=== PATIENT | male | born 1955 | race Caucasian/White ===

== ENCOUNTER 2016-09-14 20:20 | Inpatient (IN) | payer OTHER ==
[~2016-09-14 20:20] MED LIST: ASPI81CH CHEW; ATOR1TAB18 PO; CIAL20TA PO; FENO160T PO; GLUC5TAB3 PO; INSU1INJ5 SQ; LISI40TA PO; NIAS1000 PO; NOVOINJ3 SQ; OMEG1CAP53 PO
[2016-09-14 20:45] VITALS: BP 167/75; PULSE 98; RESP 24; TEMP 99.5; O2SAT 96
[2016-09-14] MEDS ORDERED: LORazepam 2 MG/ML VIAL IV PRN (21:30)
[2016-09-14] MEDS ORDERED: LACTULOSE SYRUP 20 GM/30 ML CUP PO PRN (21:30)
[2016-09-14] MEDS ORDERED: CHLORHEXIDINE GLUCONATE 2 % 1 PACK (2 CLOTHS) TOP PRN (21:30)
[2016-09-14] MEDS ORDERED: GLUCAGON 1 MG/ML VIAL OTHER PRN (21:30)
[2016-09-14] MEDS ORDERED: BISACODYL 10 MG SUPP RECTAL PRN (21:30)
[2016-09-14] MEDS ORDERED: RESP: ALBUTEROL 2.5 MG/IPRATROPIUM 0.5 MG NEB (PRN) INH (21:30)
[2016-09-14] MEDS ORDERED: MISCELLANEOUS NURSING INFORMATION XX SCH (21:30)
[2016-09-14] MEDS ORDERED: ONDANSETRON HCL 4 MG/2 ML VIAL IV PRN (21:30)
[2016-09-14] MEDS ORDERED: SODIUM CHLOR 0.9% 1000 ML INJ 1,000 ML IV ONE ×3 (21:30)
[2016-09-14] MEDS ORDERED: MORPHINE SULFATE 4 MG/ML INJ IV PRN (21:30)
[2016-09-14] MEDS ORDERED: ZOLPIDEM TARTRATE 5 MG TAB PO PRN (21:30)
[2016-09-14] MEDS ORDERED: SODIUM CHLORIDE 0.9% FLUSH 10 ML FLUSH PRN (21:30)
[2016-09-14] MEDS ORDERED: MAGNESIUM HYDROXIDE SUSP 30 ML CUP PO PRN (21:30)
[2016-09-14] MEDS ORDERED: SENNOSIDES 8.6 MG TAB PO PRN (21:30)
[2016-09-14 22:00] VITALS: BP 173/77; PULSE 98; RESP 21; TEMP 99.5; O2SAT 96
[2016-09-14] MEDS: HEPARIN SODIUM - SQ 10,000 UNITS/ML VIAL SQ SCH (22:02)
[2016-09-14] MEDS: SODIUM BICARBONATE 8.4% INJ 150 MEQ in DEXTROSE 5% IN WATE 1000ML INJ 1,000 ML IV SCH ×2 (22:07)
[2016-09-14 22:45] LABS: BLOOD GAS BASE EXCESS -10.4 mmol/L (-2-2); BLOOD GAS CARBOXYHEMOGLOBIN 1.7 % (0-4); BLOOD GAS HCO3 15 mmol/L (22-26); BLOOD GAS O2 HGB SATURATION 93 % (90-100); BLOOD GAS OXYGEN CONTENT 13.9 Vol % (12.0-20.0); BLOOD GAS PCO2 32 mmHg (38-42); BLOOD GAS PO2 82 mmHg (61-120); BLOOD GAS TOTAL HGB 10.6 G/DL (12.0-16.0); TEMP CORR TO 98.6
[2016-09-14 22:46] LABS: CRITICAL VALUE YES; DRAW SITE RT RADIAL; FIO2 21 %; NUMBER OF ARTERIAL PUNCTURES 1; OXYGEN DEVICE ROOM AIR; STAT NO; ULNAR PULSE PRESENT
[2016-09-14 23:00] VITALS: BP 161/70; PULSE 100; RESP 24; TEMP 99.5; O2SAT 100
--- NOTE | 2016-09-14 23:19 | HHI.HP ---
[facility] Service Critical Care Medicine Primary Care Physician Lj Glez MD Admission Diagnosis Diagnosis: Travel History International Travel<30 Days: No Contact w/Intl Traveler <30 Da: No Traveled to Known Affected Are: No History of Present Illness 61-year-old man with 3 day history of intermittent vomiting and diarrhea. He has spent the past weekend 2-3 days ago renovating a rental house with significant physical exertion and extended chlorine bleach exposure, with some concern about chlorine poisoning, but without major breathlessness. He has had some pain along his right arm for the past day, which started after his physical activities, and he also has a new cough with mild whitish sputum production and some shortness of breath. Patient is a type 2 insulin-dependent diabetic, and he takes insulin as well as metformin. He has no known history of kidney disease. Review of Systems Constitutional: DENIES: Diaphoretic episodes, Fatigue, Fever, Weight gain, Weight loss, Chills, Dizziness, Change in appetite, Night Sweats Endocrine: DENIES: Heat/cold intolerance, Polydipsia, Polyuria, Polyphagia Eyes: DENIES: Blurred vision, Diplopia, Eye inflammation, Eye pain, Vision loss , Photosensitivity, Double Vision Ears, nose, mouth, throat: DENIES: Tinnitus, Hearing loss, Vertigo, Nasal discharge, Oral lesions, Throat pain, Hoarseness, Ear Pain, Running Nose, Epistaxis, Sinus Pain, Toothache, Odynophagia Respiratory: DENIES: Apneas, Cough, Snoring, Wheezing, Hemoptysis, Sputum production, Shortness of breath Cardiovascular: DENIES: Chest pain, Palpitations, Syncope, Dyspnea on Exertion , PND, Lower Extremity Edema, Orthopnea, Claudication Gastrointestinal: COMPLAINS OF: Diarrhea, Nausea, Vomiting, DENIES: Abdominal pain, Black stools, Bloody stools, Constipation, Difficulty Swallowing, Anorexia Genitourinary: DENIES: Sexual dysfunction, Urinary frequency, Urinary incontinence, Urgency, Hematuria, Dysuria, Nocturia, Penile Discharge, Testicular Pain, Testicular Swelling Musculoskeletal: COMPLAINS OF: Joint pain, DENIES: Muscle aches, Stiffness, Joint Swelling, Back pain, Neck pain Integumentary: DENIES: Abnormal pigmentation, Nail changes, Pruritus, Rash Hematologic/lymphatic: DENIES: Bruising, Lymphadenopathy Immunologic/allergic: DENIES: Eczema, Urticaria Neurologic: DENIES: Abnormal gait, Headache, Localized weakness, Paresthesias, Seizures, Speech Problems, Tremor, Poor Balance Psychiatric: DENIES: Anxiety, Confusion, Mood changes, Depression, Hallucinations, Agitation, Suicidal Ideation, Homicidal Ideation, Delusions Past Family Social History Allergies: Coded Allergies: No Known Allergies (Unverified , 09/14/16) Past Medical History Hypertension Diabetes mellitus type 2 Reported Medications Reported Meds & Active Scripts Active Reported Novolog Flexpen Inj (Insulin Aspart) 300 Unit/3 Ml Pen 1 Units SQ Niaspan (Niacin ER) 1,000 Mg Tab 1,000 Mg PO BID Lovaza (Khgia-8-Qqqi Ethyl Esters) 1 Gm Cap 4 Gm PO DAILY Lisinopril 40 Mg Tab 40 Mg PO DAILY Levemir Flextouch Pen Inj (Insulin Detemir) 300 unit/3 ML Pen 1 Units SQ Glucovance (Glyburide-Metformin) 5-500 Mg Tab 1 Tab PO BID Fenofibrate 160 Mg Tab 160 Mg PO DAILY Cialis (Tadalafil) 20 Mg Tab 20 Mg PO DAILY PRN Do not exceed 1 dose/day. Atorvastatin (Atorvastatin Calcium) 80 Mg Tab 80 Mg PO HS Aspirin 81 Mg Chew 162 Mg CHEW DAILY Active Ordered Medications Current Medications Medications (Trade) Dose Ordered Sig/Yamel Route PRN Reason Start Time Stop Time Status Last Admin Dose Admin Aspirin (Aspirin Chew) 162 mg DAILY CHEW 09/15/16 09:00 Atorvastatin Calcium (Lipitor) 80 mg HS PO 09/15/16 21:00 Niacin (Slo-Niacin) 1,000 mg BID PO 09/15/16 09:00 Fenofibrate (Tricor) 145 mg DAILY PO 09/15/16 09:00 Sodium Chloride (NS Flush) 2 ml UNSCH PRN .XX FLUSH AFTER USING IV ACCESS 09/14/16 21:30 Sodium Chloride (NS Flush) 2 ml BID .XX 09/15/16 09:00 Acetaminophen (Tylenol) 650 mg Q6H PRN PO PAIN 1-10 AND/OR FEVER >101F 09/14/16 21:30 Morphine Sulfate (Morphine Inj) 2 mg Q2H PRN IV PAIN SCALE 6 TO 10 09/14/16 21:30 Famotidine (Pepcid Inj) 20 mg DAILY IV PUSH 09/15/16 09:00 Lorazepam (Ativan Inj) 2 mg Q4H PRN IV Agitation/Sedation 09/14/16 21:30 Ondansetron HCl (Zofran Inj) 4 mg Q6H PRN IV NAUSEA OR VOMITING 09/14/16 21:30 09/14/16 23:50 Zolpidem Tartrate (Ambien) 5 mg HS PRN PO INSOMNIA 09/14/16 21:30 Heparin Sodium (Porcine) (Heparin Inj) 5,000 units Q8H SQ 09/14/16 21:30 09/14/16 22:02 Miscellaneous Information 1 [id number] XX 09/14/16 21:30 09/14/16 21:30 Chlorhexidine Gluconate (Chlorhexidine 2% Cloth) 3 pack Taper DAILY@04 TOP 09/15/16 04:00 09/11/17 03:59 Chlorhexidine Gluconate (Chlorhexidine 2% Cloth) 3 pack UNSCH PRN TOP HYGIENIC CARE 09/14/16 21:30 Senna/Docusate Sodium (Sharona-Colace) 1 tab BID PO 09/15/16 09:00 Magnesium Hydroxide (Milk Of Lia Liq) 30 ml Q12H PRN PO MILD - MODERATE CONSTIPATION 09/14/16 21:30 Sennosides (Senokot) 17.2 mg Q12H PRN PO MODERATE - SEVERE CONSTIPATION 09/14/16 21:30 Bisacodyl (Dulcolax Supp) 10 mg DAILY PRN RECTAL SEVERE CONSITIPATION 09/14/16 21:30 Lactulose 30 ml 30 ml DAILY PRN PO SEVERE CONSITIPATION 09/14/16 21:30 Sodium Bicarbonate/ Dextrose (Sodium Bicarbonate 8.4% Inj/D5W 1000 ml Inj) 1,150 ml @ 75 mls/hr [id number] IV 09/14/16 21:30 09/14/16 22:07 Dextrose (D50w (Vial) Inj) 50 ml UNSCH PRN IV HYPOGLYCEMIA-SEE COMMENTS 09/14/16 21:30 Glucagon (Glucagon Inj) 1 mg UNSCH PRN OTHER HYPOGLYCEMIA-SEE COMMENTS 09/14/16 21:30 Labetalol HCl (Trandate Inj) 10 mg Q4H PRN IV PUSH SBP>160, DBP>90 09/14/16 23:45 Hydralazine HCl (Apresoline Inj) 20 mg Q4H PRN IV PUSH SBP>160, DBP>90 09/14/16 23:45 09/15/16 00:24 Family History No family history of early coronary artery disease or cancer Social History Alcohol Use: No Tobacco Use: No Substance Use: No Physical Exam Vital Signs Vital Signs Date Time Temp Pulse Resp B/P Pulse Ox O2 Delivery O2 Flow Rate FiO2 09/14/16 20:45 98 09/14/16 20:45 99.5 98 24 167/75 96 09/14/16 20:45 98 Physical Exam GENERAL: Well-nourished, well-developed patient. SKIN: Warm and dry. HEAD: Normocephalic. EYES: No scleral icterus. No injection or drainage. NECK: Supple, trachea midline. No JVD or lymphadenopathy. CARDIOVASCULAR: Regular rate and rhythm without murmurs, gallops, or rubs. RESPIRATORY: Breath sounds equal bilaterally. No accessory muscle use. GASTROINTESTINAL: Abdomen soft, non-tender, nondistended. MUSCULOSKELETAL: No cyanosis, or edema. BACK: Nontender without obvious deformity. No CVA tenderness. EXTREMITIES: No clubbing cyanosis or edema Laboratory Laboratory Tests Test 09/14/16 22:31 Blood Gas Puncture Site RT RADIAL Blood Gas Patient Temperature 98.6 Blood Gas HCO3 15 Blood Gas Base Excess -10.4 Blood Gas Oxygen Saturation 93 Arterial Blood pH 7.29 Arterial Blood Partial 32 Pressure CO2 Arterial Blood Partial 82 Pressure O2 Arterial Blood Oxygen Content 13.9 Arterial Blood 1.7 Carboxyhemoglobin Arterial Blood Methemoglobin 1.0 Blood Gas Hemoglobin 10.6 Oxygen Delivery Device ROOM AIR Blood Gas Inspired Oxygen 21 Assessment and Plan Assessment and Plan Acute kidney injury - Due to volume loss - Aggressive IV fluid rehydration - Sodium bicarbonate drip - Nephrology consult - Monitor I's and O's and electrolytes trend Rhabdomyolysis - Due to dehydration - Sodium bicarbonate to alkalinize urine - Monitor series of CPKs Hypertension - Hold LORETTA inhibitor and diuretics - Norvasc - Hydralazine when necessary Diabetes - Hold metformin due to acute kidney injury - Insulin sliding scale - Long acting insulin per home dose DVT GI prophylaxis - Subcutaneous heparin Pepcid - Teds and SCDs Critical Care: The total critical care time was 35 minutes. Time to perform other separately billable procedures was not included in the critical care time. Vinnie Smart MD Sep 14, 2016 23:19
[2016-09-14] MEDS ORDERED: LABETALOL HCL 100 MG/20 ML VIAL IV PUSH PRN (23:45)
[2016-09-15] VITALS (16 sets, daily range): BP systolic 112–170; BP diastolic 53–83; PULSE 80–108; RESP 17–31; TEMP 98–99; O2SAT 93–98
[2016-09-15 00:24] LABS: ANION GAP 14 MEQ/L (5-15)
[2016-09-15] MEDS: hydrALAZINE HCL 20 MG/ML VIAL IV PUSH PRN ×2 (00:24→10:25)
[2016-09-15 00:29] LABS: ALKALINE PHOSPHATASE 27 U/L (45-117); ALT (GPT) 41 U/L (12-78); AST (GOT) 28 U/L (15-37); BICARBONATE 14.7 MEQ/L (21.0-32.0); BLOOD UREA NITROGEN 94 MG/DL (7-18); CHLORIDE 112 MEQ/L (98-107); CREATINE KINASE 836 U/L (39-308); GLOMERULAR FILTRATION RATE 5 ML/MIN (>89); MAGNESIUM 1.8 MG/DL (1.5-2.5); SODIUM (NA) 141 MEQ/L (136-145); TOTAL BILIRUBIN ADULT 0.4 MG/DL (0.2-1.0)
[2016-09-15 00:31] LABS: POTASSIUM 6.7 MEQ/L (3.5-5.1)
[2016-09-15] MEDS: ACETAMINOPHEN 325 MG TAB PO PRN ×2 (00:33→10:24)
[2016-09-15] MEDS ORDERED: INSULIN HUMAN REGULAR 1,000 UNITS/10 ML VIAL IV PUSH ONE ×2 (00:45→18:45)
[2016-09-15] MEDS ORDERED: SODIUM CHLOR 0.9% 1000 ML INJ 1,000 ML IV ONE ×3 (00:45)
[2016-09-15] MEDS ORDERED: CALCIUM GLUCONATE INJ 2 GM in SODIUM CHLORIDE 0.9% INJ 100 ML IV ONE (00:45)
[2016-09-15] MEDS ORDERED: SODIUM BICARBONATE 8.4% INJ 50 MEQ/50 ML SYR IV PUSH ONE ×2 (00:45→17:45)
[2016-09-15] MEDS ORDERED: DEXTROSE 50% IN WATER 50 ML VIAL(D50) IV PUSH ONE (00:45)
[2016-09-15] MEDS ORDERED: SODIUM POLYSTYRENE SULFONATE SUSP 15 GM/60 ML CUP PO ONE ×3 (00:45→17:45)
[2016-09-15 00:51] LABS: CKMB 4.7 NG/ML (0.5-3.6)
[2016-09-15] MEDS: CHLORHEXIDINE GLUCONATE 2 % 1 PACK (2 CLOTHS) TOP SCH (03:04)
[2016-09-15 04:03] LABS: AUTOMATED NEUTROPHIL # 5.1 TH/MM3 (1.8-7.7); BASOPHIL % 0.3 % (0.0-2.0); EOSINOPHIL % 0.1 % (0.0-4.0); HEMATOCRIT 29.7 % (39.0-51.0); HEMO FLAGS DIFF FINAL; LYMPH % 15.6 % (9.0-44.0); MEAN CELL VOLUME 91.6 FL (80.0-100.0); MEAN CORPUSCULAR HEMOGLOBIN 30.6 PG (27.0-34.0); MEAN CORPUSCULAR HGB CONC 33.5 % (32.0-36.0); MONO % 7.9 % (0.0-8.0); NEUT % 76.1 % (16.0-70.0); PLATELET COUNT 131 TH/MM3 (150-450); RED BLOOD COUNT 3.24 MIL/MM3 (4.50-5.90); RED CELL DISTRIBUTION WIDTH 15.6 % (11.6-17.2); WHITE BLOOD COUNT 6.7 TH/MM3 (4.0-11.0)
[2016-09-15 04:24] LABS: ALKALINE PHOSPHATASE 24 U/L (45-117); ALT (GPT) 37 U/L (12-78); ANION GAP 12 MEQ/L (5-15); AST (GOT) 21 U/L (15-37); BICARBONATE 15.8 MEQ/L (21.0-32.0); BLOOD UREA NITROGEN 86 MG/DL (7-18); CHLORIDE 116 MEQ/L (98-107); CREATINE KINASE 715 U/L (39-308); GLOMERULAR FILTRATION RATE 6 ML/MIN (>89); MAGNESIUM 1.7 MG/DL (1.5-2.5); POTASSIUM 5.4 MEQ/L (3.5-5.1); SODIUM (NA) 144 MEQ/L (136-145); TOTAL BILIRUBIN ADULT 0.3 MG/DL (0.2-1.0)
[2016-09-15 04:43] LABS: CKMB 4.3 NG/ML (0.5-3.6)
[2016-09-15] MEDS: HEPARIN SODIUM - SQ 10,000 UNITS/ML VIAL SQ SCH ×3 (05:17→22:01)
[2016-09-15] MEDS: SODIUM CHLORIDE 0.9% FLUSH 10 ML FLUSH SCH ×2 (09:00→21:00)
[2016-09-15] MEDS: DOCUSATE SODIUM 50 MG/SENNA 8.6 MG TAB PO SCH ×2 (09:00→21:00)
[2016-09-15] MEDS ORDERED: OMEGA ACID ETHYL ESTERS PO SCH (09:00)
[2016-09-15] MEDS: INSULIN ASPART SUPPLEMENTAL SCALE SQ SCH ×4 (09:30→22:04)
[2016-09-15] MEDS: FENOFIBRATE 145 MG TAB PO SCH (09:32)
[2016-09-15] MEDS: FAMOTIDINE 20 MG/2 ML VIAL IV PUSH SCH (09:32)
[2016-09-15] MEDS: NIACIN 500 MG EXTENDED RELEASE TAB PO SCH ×2 (09:32→22:01)
[2016-09-15] MEDS: ASPIRIN 81 MG CHEW TAB CHEW SCH (09:33)
[2016-09-15] MEDS: SODIUM BICARBONATE 8.4% INJ 150 MEQ in DEXTROSE 5% IN WATE 1000ML INJ 1,000 ML IV SCH ×4 (10:35→17:24)
--- NOTE | 2016-09-15 13:35 | PD.TRANSFR ---
Transfer Summary Admission Date Sep 14, 2016 at 20:30 Admitting Diagnosis Diagnoses: (1) Acute renal failure Diagnosis: Principal (2) Rhabdomyolysis Diagnosis: Principal (3) Dehydration Diagnosis: Principal (4) Hyperkalemia Diagnosis: Principal (5) Insulin dependent diabetes mellitus Diagnosis: Secondary Transfer Summary/Subjective 61-year-old man with 3 day history of intermittent vomiting and diarrhea. He has spent the past weekend 2-3 days ago renovating a rental house with significant physical exertion and extended chlorine bleach exposure, with some concern about chlorine poisoning, but without major breathlessness. He has had some pain along his right arm for the past day, which started after his physical activities, and he also has a new cough with mild whitish sputum production and some shortness of breath. Patient is a type 2 insulin-dependent diabetic, and he takes insulin as well as metformin. He has no known history of kidney disease. SUBJ 09/15: Clinically improving. Urine output more than 2.2 L in the last 8 hours. Creatinine improved from 10.5-9.5 potassium was 6.7 yesterday today morning 5.4. Objective Vital Signs Date Time Temp Pulse Resp B/P Pulse Ox O2 Delivery O2 Flow Rate FiO2 09/15/16 12:00 98.3 82 19 156/67 98 09/15/16 07:00 Room Air Intake and Output 09/14/16 09/14/16 09/15/16 08:00 16:00 00:00 Intake Total 1657 ml Output Total 450 ml Balance 1207 ml Result Diagram: 09/15/16 0339 09/15/16 0339 Other Results Laboratory Tests Test 09/14/16 22:31 Blood Gas Puncture Site RT RADIAL Blood Gas Patient Temperature 98.6 Blood Gas HCO3 15 mmol/L (22-26) Blood Gas Base Excess -10.4 mmol/L (-2-2) Blood Gas Oxygen Saturation 93 % (90-100) Arterial Blood pH 7.29 (7.380-7.420) Arterial Blood Partial 32 mmHg (38-42) Pressure CO2 Arterial Blood Partial 82 mmHg Pressure O2 (61-120) Arterial Blood Oxygen Content 13.9 Vol % (12.0-20.0) Arterial Blood 1.7 % (0-4) Carboxyhemoglobin Arterial Blood Methemoglobin 1.0 % (0-2) Blood Gas Hemoglobin 10.6 G/DL (12.0-16.0) Oxygen Delivery Device ROOM AIR Blood Gas Inspired Oxygen 21 % Objective Remarks GENERAL: Well-nourished, well-developed patient. SKIN: Warm and dry. HEAD: Normocephalic. EYES: No scleral icterus. No injection or drainage. NECK: Supple, trachea midline. No JVD or lymphadenopathy. CARDIOVASCULAR: Regular rate and rhythm without murmurs, gallops, or rubs. RESPIRATORY: Breath sounds equal bilaterally. No accessory muscle use. GASTROINTESTINAL: Abdomen soft, non-tender, nondistended. MUSCULOSKELETAL: No cyanosis, or edema. BACK: Nontender without obvious deformity. No CVA tenderness. EXTREMITIES: No clubbing cyanosis or edema NEURO: AOx3. No Focal Deficits Urinary Catheter: Yes Assessment to: Continue A/P Assessment and Plan Acute kidney injury - Due to volume loss - Aggressive IV fluid rehydration - Sodium bicarbonate drip, at 150 ml per hour - Nephrology consult-Dr. Hernandez - Monitor I's and O's and electrolytes trend - No indication for emergency HD Rhabdomyolysis - Due to dehydration - Sodium bicarbonate to alkalinize urine, at 150 ml per hour - Monitor series of CPKs Hypertension - Hold LORETTA inhibitor and diuretics - Norvasc - Hydralazine when necessary Diabetes - Hold metformin due to acute kidney injury - Insulin sliding scale - Long acting insulin per home dose DVT GI prophylaxis - Subcutaneous heparin Pepcid - Teds and SCDs Critical Care: Level 3 Consult [facility] to assume care in am 09/15/16. Continue ICU care for 1 more day Theodore Glez MD Sep 15, 2016 13:35
[2016-09-15 16:15] LABS: BICARBONATE 17.5 MEQ/L (21.0-32.0); POTASSIUM 5.6 MEQ/L (3.5-5.1)
[2016-09-15 16:47] LABS: CKMB 4.6 NG/ML (0.5-3.6)
[2016-09-15 18:17] LABS: ANION GAP 10 MEQ/L (5-15); AST (GOT) 26 U/L (15-37); BICARBONATE 17.1 MEQ/L (21.0-32.0); BLOOD UREA NITROGEN 78 MG/DL (7-18); CHLORIDE 114 MEQ/L (98-107); GLOMERULAR FILTRATION RATE 7 ML/MIN (>89); POTASSIUM 5.5 MEQ/L (3.5-5.1); SODIUM (NA) 141 MEQ/L (136-145)
[2016-09-15 18:18] LABS: ALT (GPT) 39 U/L (12-78)
[2016-09-15 18:20] LABS: ALKALINE PHOSPHATASE 27 U/L (45-117); TOTAL BILIRUBIN ADULT 0.5 MG/DL (0.2-1.0)
--- NOTE | 2016-09-15 18:47 | MB ---
cc: SAROJ MICHAELS MD DATE OF CONSULTATION 09/15/2016 REASON FOR CONSULTATION Elevated BUN and creatinine and hyperkalemia. HISTORY OF PRESENT ILLNESS This is a 61-year-old male with past medical history of diabetes mellitus which is longstanding more than 25 years, history of hypertension, hyperlipidemia, came to the hospital with complaint of nausea, vomiting, diarrhea, generalized weakness. I was called to see the patient because of very high BUN and creatinine. The patient has creatinine of 11.4 on admission with the BUN of 98 and potassium of 6.8. With treatment the potassium came down to 5.4-5.6. He also has a metabolic acidosis. His bicarb on admission was 12. The patient denies any previous history of renal disease. His creatinine kinase was high 1244 on admission but for the last three or four days the patient has nausea, vomiting and diarrhea and he was not eating very good and was taking some ibuprofen. He denies any dysuria, hematuria or difficulty passing urine. He has no known history of diabetic retinopathy or clinically he does not have any uropathy. The patient has been following with his primary physician in [place] and he was never told that he has any renal dysfunction. Patient has been renovating a rental house and he has some exposure to chlorine bleach and he was concerned that this is causing some problem with his breathing. PAST MEDICAL HISTORY 1. Hypertension. 2. diabetes mellitus. 3. Hyperlipidemia. PAST SURGICAL HISTORY History of cataract surgery. REVIEW OF SYSTEMS Denies any history of fever. No sore throat. He has generalized weakness, feeling tired. No shortness of breath or chest pain. No palpitation. He has this nausea or vomiting and diarrhea going on for last 3 or 4 days. There is no specific abdominal pain. No dysuria, hematuria, difficulty passing urine. He was taking ibuprofen off and on for last few days. For diabetes he has been taking insulin and also metformin. He has mild cough with whitish sputum. SOCIAL HISTORY The patient is . There is a remote history of smoking. There is no history of heavy alcoholism. FAMILY HISTORY Noncontributory. ALLERGIES NO KNOWN DRUG ALLERGIES. MEDICATIONS Currently he is on: 1. IV fluid with sodium bicarbonate. 2. Niacin 100 milligrams twice a day. 3. Sharona-Colace one tablet twice a day. 4. Aspirin 162 milligrams daily. 5. Tricor 145 milligrams daily. 6. Famotidine 20 mg daily. 7. Lipitor 80 mg q.h.s. 8. Heparin 5000 units subcu q. 8-hour. 9. Insulin aspart sliding scale. 10. Tylenol as needed. 11. Lactulose as needed. PHYSICAL EXAMINATION GENERAL: On examination the patient is awake, alert. He is not in acute distress. VITAL SIGNS: His last blood pressure is 156/67, blood pressure has been slightly on the higher side. He does not have any hypotensive episode during this admission. Temperature 98.3 and oxygen saturation 98% on room air. HEENT: Pupils equally reacting to light. Nonicteric sclerae, conjunctiva pale. NECK: Supple. JVD is not elevated. LUNGS: The patient has bilateral good air entry with no wheezing. CARDIOVASCULAR: S1-S2 regular rhythm. ABDOMEN: Distended, soft, lax. There is no tenderness. Bowel sounds positive. EXTREMITIES: He has mild edema in the legs. LABORATORY DATA Investigations, WBC count is 6.7, hemoglobin 9.9, platelet count 131, neutrophils 76.1%. Sodium 143, potassium 5.6, chloride 115, bicarb 17.5, BUN 76, creatinine 8.35. Calcium is 8.1. Creatinine kinase now is 684. Total protein is 6.2 with albumin of 2.9. Urinalysis showing protein of 30. IMAGING STUDIES The patient has CT scan of the abdomen and pelvis done without IV contrast and it shows that the patient has nonspecific perinephric stranding bilaterally. No hydronephrosis or hydroureter. Stranding in the subcutaneous tissue of the lower abdominal wall which could be from the subcutaneous injection. Bilateral pars fracture at L5. The kidneys are reported normal in size. No mass or hydronephrosis. Bilateral perinephric stranding, right greater than the left. Chest x-ray was done which shows lung padron clear. ASSESSMENT/PLAN 1. Acute kidney injury. 2. Hyperkalemia. 3. Metabolic acidosis. 4. Rhabdomyolysis. 5. Hypertension. 6. Diabetes mellitus. 7. Anemia. The patient has very high BUN and creatinine. He denies any previous history of renal disease. We do not have any previous labs for him so I asked him to get some labs from his primary physician tomorrow to see what was his creatinine before. It seems like he has acute kidney injury most likely this is related to dehydration or possibility of nonsteroidal anti-inflammatory drugs and acidosis may be contributing more since she was on metformin. Hyperkalemia is due to combination of . At present I agree with continuing IV fluid and bicarb infusion. I told the patient to avoid taking any nonsteroidal anti-inflammatory drugs in the future. I will check his serology including MARK, anti-DNA and complements to look for other etiology of his renal failure. There is no acute urgent indication for dialysis since he is passing a lot of urine and BUN and creatinine are coming down. The rhabdomyolysis also playing some role in this acute kidney injury but the CPKs are improving. Continued IV hydration and follow the urine output and the BUN and creatinine. Thank you for the consultation and I will follow the patient while he is in the hospital. MD ISABELLE Irene/MERCEDES /5:34 PM /6:09 PM
[2016-09-15] MEDS: DEXTROSE 50% IN WATER 50 ML SYRINGE IV PRN ×2 (19:28→19:31)
[2016-09-15] MEDS ORDERED: RESP: ALBUTEROL 2.5 MG/IPRATROPIUM 0.5 MG NEB (SCH) NEB ONE (20:00)
[2016-09-15] MEDS ORDERED: SODIUM BICARBONATE 7.5% INJ 44.6 MEQ/50 ML SYR IV PUSH ONE (20:00)
[2016-09-15] MEDS: ATORVASTATIN 80 MG TAB PO SCH (22:01)
[2016-09-16] VITALS (12 sets, daily range): BP systolic 109–157; BP diastolic 60–78; PULSE 67–90; RESP 17–22; TEMP 96.9–98.8; O2SAT 96–100
[2016-09-16 00:09] LABS: BICARBONATE 23.3 MEQ/L (21.0-32.0); POTASSIUM 5.1 MEQ/L (3.5-5.1)
[2016-09-16] MEDS: SODIUM BICARBONATE 8.4% INJ 150 MEQ in DEXTROSE 5% IN WATE 1000ML INJ 1,000 ML IV SCH ×8 (00:16→22:52)
[2016-09-16 00:43] LABS: CKMB 3.5 NG/ML (0.5-3.6)
[2016-09-16] MEDS: CHLORHEXIDINE GLUCONATE 2 % 1 PACK (2 CLOTHS) TOP SCH (04:00)
[2016-09-16 05:04] LABS: AUTOMATED NEUTROPHIL # 2.8 TH/MM3 (1.8-7.7); BASOPHIL % 0.4 % (0.0-2.0); EOSINOPHIL # 0.1 TH/MM3 (0-0.4); EOSINOPHIL % 1.9 % (0.0-4.0); HEMATOCRIT 29.8 % (39.0-51.0); HEMO FLAGS DIFF FINAL; LYMPHOCYTE # 1.2 TH/MM3 (1.0-4.8); MEAN CELL VOLUME 91.1 FL (80.0-100.0); MEAN CORPUSCULAR HEMOGLOBIN 29.9 PG (27.0-34.0); MEAN CORPUSCULAR HGB CONC 32.9 % (32.0-36.0); MONO % 7.4 % (0.0-8.0); NEUT % 63.3 % (16.0-70.0); PLATELET COUNT 127 TH/MM3 (150-450); RED BLOOD COUNT 3.27 MIL/MM3 (4.50-5.90); RED CELL DISTRIBUTION WIDTH 15.4 % (11.6-17.2); WHITE BLOOD COUNT 4.4 TH/MM3 (4.0-11.0)
[2016-09-16 05:11] LABS: ALT (GPT) 34 U/L (12-78); ANION GAP 9 MEQ/L (5-15); AST (GOT) 17 U/L (15-37); BICARBONATE 24.2 MEQ/L (21.0-32.0); BLOOD UREA NITROGEN 64 MG/DL (7-18); CHLORIDE 112 MEQ/L (98-107); GLOMERULAR FILTRATION RATE 9 ML/MIN (>89); POTASSIUM 4.7 MEQ/L (3.5-5.1); SODIUM (NA) 145 MEQ/L (136-145)
[2016-09-16 05:13] LABS: ALKALINE PHOSPHATASE 25 U/L (45-117); CREATINE KINASE 563 U/L (39-308); TOTAL BILIRUBIN ADULT 0.3 MG/DL (0.2-1.0)
[2016-09-16] MEDS: INSULIN ASPART SUPPLEMENTAL SCALE SQ SCH ×4 (07:00→20:40)
[2016-09-16] MEDS: HEPARIN SODIUM - SQ 10,000 UNITS/ML VIAL SQ SCH ×3 (07:01→20:36)
[2016-09-16] MEDS: DOCUSATE SODIUM 50 MG/SENNA 8.6 MG TAB PO SCH (09:00)
[2016-09-16] MEDS: SODIUM CHLORIDE 0.9% FLUSH 10 ML FLUSH SCH ×2 (09:00→21:00)
[2016-09-16] MEDS: NIACIN 500 MG EXTENDED RELEASE TAB PO SCH ×2 (09:29→21:00)
[2016-09-16] MEDS: ASPIRIN 81 MG CHEW TAB CHEW SCH (09:29)
[2016-09-16] MEDS: FAMOTIDINE 20 MG/2 ML VIAL IV PUSH SCH (09:29)
[2016-09-16] MEDS: FENOFIBRATE 145 MG TAB PO SCH (09:29)
--- NOTE | 2016-09-16 13:26 | HHI.PR ---
Subjective Remarks Follow-up acute renal failure/rhabdomyolysis 09/16/16-patient seen and examined, he has increased urine output and no other issues. Denies any chest pain or shortness of breath Objective Vitals Vital Signs Date Time Temp Pulse Resp B/P Pulse Ox O2 Delivery O2 Flow Rate FiO2 09/16/16 12:25 98.0 79 22 157/72 99 09/16/16 12:00 90 09/16/16 10:00 75 09/16/16 08:00 98.8 75 22 135/67 99 09/16/16 08:00 75 09/16/16 06:00 82 09/16/16 04:00 75 09/16/16 04:00 98.3 75 18 134/60 100 09/16/16 02:00 77 09/16/16 00:00 98.7 77 18 138/69 98 09/16/16 00:00 77 09/15/16 22:00 82 09/15/16 20:00 92 09/15/16 20:00 98.5 92 23 170/83 98 09/15/16 19:00 98 Room Air 09/15/16 18:00 92 09/15/16 16:50 98.2 80 17 164/73 97 09/15/16 16:37 108 09/15/16 14:00 108 I/O 09/15/16 09/15/16 09/15/16 09/16/16 09/16/16 09/16/16 07:00 15:00 23:00 07:00 15:00 23:00 Intake Total 5720 ml 791 ml 1225 ml 1344 ml 380 ml Output Total 2025 ml 3203 ml 1902 ml 1450 ml 1600 ml Balance 3695 ml -2412 ml -677 ml -106 ml -1220 ml Intake Oral 360 ml 360 ml 290 ml 50 ml 380 ml IV Total 5360 ml 431 ml 935 ml 1294 ml Output Urine Total 1925 ml 3200 ml 1900 ml 1450 ml 1600 ml Stool Total 100 ml 3 ml 2 ml # Bowel Movements 6 2 Result Diagram: 09/16/16 0348 09/16/16 0348 Objective Remarks GENERAL: NAD SKIN: Warm and dry. HEAD: Normocephalic. EYES: No scleral icterus. No injection or drainage. NECK: Supple, trachea midline. No JVD or lymphadenopathy. CARDIOVASCULAR: Regular rate and rhythm without murmurs, gallops, or rubs. RESPIRATORY: Breath sounds equal bilaterally. No accessory muscle use. GASTROINTESTINAL: Abdomen soft, non-tender, nondistended. MUSCULOSKELETAL: No cyanosis, or edema. BACK: Nontender without obvious deformity. No CVA tenderness. A/P Problem List: (1) Acute renal failure ICD Code: N17.9 Status: Acute (2) Rhabdomyolysis ICD Code: M62.82 Status: Acute (3) Dehydration ICD Code: E86.0 Status: Acute (4) Hyperkalemia ICD Code: E87.5 Status: Acute (5) Insulin dependent diabetes mellitus ICD Code: E11.9 Status: Acute Assessment and Plan 61-year-old man with Acute kidney injury -Renal indices improving -Continue with aggressive IV fluid hydration -Avoid all nephrotoxic drugs and monitor BUN and creatinine -Appreciate input from nephrology and no indication for emergency HD Rhabdomyolysis - Due to dehydration - Continue with Sodium bicarbonate to alkalinize urine @150 ml per hour - Monitor series of CPKs Hypertension - Hold LORETTA inhibitor and diuretics - Norvasc - Hydralazine when necessary Diabetes - Hold metformin due to acute kidney injury -Continue with Insulin sliding scale - Currently on Long acting insulin DVT GI prophylaxis - Subcutaneous heparin Pepcid - Teds and SCDs Harjit Frederick MD Sep 16, 2016 13:26
--- NOTE | 2016-09-16 17:20 | HHI.NPPN ---
Subjective History of Present Illness 61-year-old male with past medical history of diabetes mellitus which is longstanding more than 25 years, history of hypertension, hyperlipidemia, came to the hospital with complaint of nausea, vomiting, diarrhea, generalized weakness. I was called to see the patient because of very high BUN and creatinine. The patient has creatinine of 11.4 on admission with the BUN of 98 and potassium of 6.8. Additional Remarks Patient is alert, feeling better, no SOB. Review of Systems General Constitutional: Fatigue Respiratory Lungs: SOB Cardiovascular Cardiac: SALAZAR Objective Data Data 09/15/16 09/16/16 19:00 07:00 Intake Total 791 ml 2569 ml Output Total 3203 ml 3352 ml Balance -2412 ml -783 ml Intake Oral 360 ml 340 ml IV Total 431 ml 2229 ml Output Urine Total 3200 ml 3350 ml Stool Total 3 ml 2 ml # Bowel Movements 2 Vital Signs Date Time Temp Pulse Resp B/P Pulse Ox O2 Delivery O2 Flow Rate FiO2 09/16/16 16:00 97.9 79 17 154/72 96 09/16/16 13:00 97.5 69 17 157/78 96 09/16/16 12:25 98.0 79 22 157/72 99 09/16/16 12:00 90 09/16/16 10:00 75 09/16/16 08:00 98.8 75 22 135/67 99 09/16/16 08:00 75 09/16/16 06:00 82 09/16/16 04:00 75 09/16/16 04:00 98.3 75 18 134/60 100 09/16/16 02:00 77 09/16/16 00:00 98.7 77 18 138/69 98 09/16/16 00:00 77 09/15/16 22:00 82 09/15/16 20:00 92 09/15/16 20:00 98.5 92 23 170/83 98 09/15/16 19:00 98 Room Air 09/15/16 18:00 92 -: 09/16/16 0348 09/16/16 0348 Physical Exam General Appearance: No Acute Distress, Comfortable Eyes Eye Exam: Pupils Equal Throat Throat Exam: Oral Mucosa [place] & Moist Neck Neck Exam: Neck Supple Pulmonary Resp Exam: Clear Bilaterally, Breath Sounds Equal, Rhonchi, Decreased Bases Cardiology CV Exam: Regular, Normal Sinus Rhythm Gastrointestinal/Abdomen GI Exam: Soft, Non-Tender, Bowel Sounds Present, Non-Distended Extremeties Extremities Exam: No Edema Neurologic Neuro Exam: Alert, Awake, Oriented Psychiatric Psych Exam: Appropriate Responses Assessment/Plan Assessment Summary: [place]/Acute Renal Failure Electrolyte Assessment: Hyperkalemia, Metabolic Acidosis Problem List: (1) Dehydration (2) Hyperkalemia (3) Rhabdomyolysis (4) Insulin dependent diabetes mellitus (5) Acute renal failure Plan Patient has been non oliguric, Urine out put is good. Creatinine continue to improve. K is normal now. CPK decreasing. Patient to bring previous labs. Continue IVF and follow the urine out put and BMP. Judith Hernandez MD Sep 16, 2016 17:20
[2016-09-16] MEDS: ATORVASTATIN 80 MG TAB PO SCH (20:36)
[2016-09-17] VITALS: BP 139/77; PULSE 92; RESP 18; TEMP 98.3; O2SAT 97
[2016-09-17] MEDS: CHLORHEXIDINE GLUCONATE 2 % 1 PACK (2 CLOTHS) TOP SCH (02:52)
[2016-09-17 04:00] VITALS: BP 143/68; PULSE 73; RESP 18; TEMP 98.5; O2SAT 96
[2016-09-17] MEDS: SODIUM BICARBONATE 8.4% INJ 150 MEQ in DEXTROSE 5% IN WATE 1000ML INJ 1,000 ML IV SCH ×4 (05:12→15:44)
[2016-09-17] MEDS: HEPARIN SODIUM - SQ 10,000 UNITS/ML VIAL SQ SCH ×3 (05:12→20:10)
[2016-09-17 06:43] LABS: BICARBONATE 28.1 MEQ/L (21.0-32.0); POTASSIUM 5.4 MEQ/L (3.5-5.1)
[2016-09-17] MEDS: INSULIN ASPART SUPPLEMENTAL SCALE SQ SCH ×4 (06:48→20:13)
[2016-09-17 07:29] LABS: CKMB 2.8 NG/ML (0.5-3.6)
[2016-09-17 08:00] VITALS: BP 138/76; PULSE 76; RESP 16; TEMP 97.9; O2SAT 96
[2016-09-17] MEDS: NIACIN 500 MG EXTENDED RELEASE TAB PO SCH ×2 (10:05→20:09)
[2016-09-17] MEDS: ASPIRIN 81 MG CHEW TAB CHEW SCH (10:05)
[2016-09-17] MEDS: FENOFIBRATE 145 MG TAB PO SCH (10:05)
[2016-09-17] MEDS: SODIUM CHLORIDE 0.9% FLUSH 10 ML FLUSH SCH ×2 (10:06→20:09)
[2016-09-17] MEDS: FAMOTIDINE 20 MG/2 ML VIAL IV PUSH SCH (10:06)
[2016-09-17 12:00] VITALS: BP 144/77; PULSE 69; RESP 16; TEMP 97.2; O2SAT 97
--- NOTE | 2016-09-17 13:25 | HHI.PR ---
Subjective Remarks Follow-up acute renal failure/rhabdomyolysis 09/16/16-patient seen and examined, he has increased urine output and no other issues. Denies any chest pain or shortness of breath 09/17/16-patient seen and examined, denies any shortness of breath. Good urine output. Renal indices improving. Objective Vitals Vital Signs Date Time Temp Pulse Resp B/P Pulse Ox O2 Delivery O2 Flow Rate FiO2 09/17/16 12:00 97.2 69 16 144/77 97 09/17/16 08:00 97.9 76 16 138/76 96 09/17/16 04:00 98.5 73 18 143/68 96 09/17/16 00:00 98.3 92 18 139/77 97 09/16/16 20:30 77 09/16/16 20:00 98.5 67 18 143/71 97 09/16/16 16:00 97.9 79 17 154/72 96 I/O 09/16/16 09/16/16 09/16/16 09/17/16 09/17/16 09/17/16 06:59 14:59 22:59 06:59 14:59 22:59 Intake Total 1344 ml 1868 ml 1002 ml Output Total 1450 ml 1600 ml 1100 ml 1300 ml Balance -106 ml 268 ml -1100 ml -298 ml Intake Oral 50 ml 1340 ml IV Total 1294 ml 528 ml 1002 ml Output Urine Total 1450 ml 1600 ml 1100 ml 1300 ml # Voids 2 # Bowel Movements 1 0 Result Diagram: 09/16/16 0348 09/17/16 0448 Imaging Objective Remarks GENERAL: NAD SKIN: Warm and dry. HEAD: Normocephalic. EYES: No scleral icterus. No injection or drainage. NECK: Supple, trachea midline. No JVD or lymphadenopathy. CARDIOVASCULAR: Regular rate and rhythm without murmurs, gallops, or rubs. RESPIRATORY: Breath sounds equal bilaterally. No accessory muscle use. GASTROINTESTINAL: Abdomen soft, non-tender, nondistended. MUSCULOSKELETAL: No cyanosis, or edema. BACK: Nontender without obvious deformity. No CVA tenderness. Procedures None A/P Problem List: (1) Acute renal failure ICD Code: N17.9 Status: Acute (2) Rhabdomyolysis ICD Code: M62.82 Status: Acute (3) Dehydration ICD Code: E86.0 Status: Acute (4) Hyperkalemia ICD Code: E87.5 Status: Acute (5) Insulin dependent diabetes mellitus ICD Code: E11.9 Status: Acute Assessment and Plan 61-year-old man with Acute kidney injury -Renal indices improving as creatinine down to 4.16 -Continue with aggressive IV fluid hydration -Avoid all nephrotoxic drugs and monitor BUN and creatinine -Appreciate input from nephrology and no indication for emergency HD Rhabdomyolysis - Due to dehydration - Continue with Sodium bicarbonate to alkalinize urine @150 ml per hour - Monitor series of CPKs Hypertension - Hold LORETTA inhibitor and diuretics - Continue Norvasc - Hydralazine when necessary Diabetes - Hold metformin due to acute kidney injury -Continue with Insulin sliding scale - Currently on Long acting insulin DVT GI prophylaxis - Subcutaneous heparin Pepcid - Teds and SCDs Harjit Frederick MD Sep 17, 2016 13:25
[2016-09-17 16:00] VITALS: BP 127/80; PULSE 71; RESP 20; TEMP 97.9; O2SAT 96
--- NOTE | 2016-09-17 18:28 | HHI.NPPN ---
Subjective History of Present Illness 61-year-old male with past medical history of diabetes mellitus which is longstanding more than 25 years, history of hypertension, hyperlipidemia, came to the hospital with complaint of nausea, vomiting, diarrhea, generalized weakness. I was called to see the patient because of very high BUN and creatinine. The patient has creatinine of 11.4 on admission with the BUN of 98 and potassium of 6.8. Additional Remarks Patient is alert, no SOB, eating well. Review of Systems General Constitutional: Fatigue Respiratory Lungs: SOB Cardiovascular Cardiac: SALAZAR Objective Data Data 09/16/16 09/17/16 19:00 07:00 Intake Total 1868 ml 1002 ml Output Total 1600 ml 2400 ml Balance 268 ml -1398 ml Intake Oral 1340 ml IV Total 528 ml 1002 ml Output Urine Total 1600 ml 2400 ml # Voids 2 # Bowel Movements 1 0 Vital Signs Date Time Temp Pulse Resp B/P Pulse Ox O2 Delivery O2 Flow Rate FiO2 09/17/16 16:00 97.9 71 20 127/80 96 09/17/16 12:00 97.2 69 16 144/77 97 09/17/16 08:00 97.9 76 16 138/76 96 09/17/16 08:00 76 09/17/16 04:00 98.5 73 18 143/68 96 09/17/16 00:00 98.3 92 18 139/77 97 09/16/16 20:30 77 09/16/16 20:00 98.5 67 18 143/71 97 -: 09/16/16 0348 09/17/16 0448 Physical Exam General Appearance: No Acute Distress, Comfortable Eyes Eye Exam: Pupils Equal Throat Throat Exam: Oral Mucosa [place] & Moist Neck Neck Exam: Neck Supple Pulmonary Resp Exam: Clear Bilaterally, Breath Sounds Equal, Rhonchi, Decreased Bases Cardiology CV Exam: Regular, Normal Sinus Rhythm Gastrointestinal/Abdomen GI Exam: Soft, Non-Tender, Bowel Sounds Present, Non-Distended Extremeties Extremities Exam: No Edema Neurologic Neuro Exam: Alert, Awake, Oriented Psychiatric Psych Exam: Appropriate Responses Assessment/Plan Assessment Summary: [place]/Acute Renal Failure Electrolyte Assessment: Hyperkalemia, Metabolic Acidosis Problem List: (1) Dehydration (2) Hyperkalemia (3) Rhabdomyolysis (4) Insulin dependent diabetes mellitus (5) Acute renal failure Plan Patient has been non oliguric, Urine out put is good. Creatinine continue to improve. K is normal now. CPK almost same today. Patient has Creatinine of 1.1-1.2 in 2015. Hco3 is normal, change IVF. Follow the urine out put and BMP. Judith Hernandez MD Sep 17, 2016 18:28
[2016-09-17] MEDS: SODIUM CHLOR 0.9% 1000 ML INJ 1,000 ML IV SCH (18:46)
[2016-09-17] MEDS: ATORVASTATIN 80 MG TAB PO SCH (20:09)
[2016-09-17 20:31] VITALS: BP 168/81; PULSE 80; RESP 16; TEMP 98.7; O2SAT 97
[2016-09-18] VITALS (7 sets, daily range): BP systolic 141–178; BP diastolic 73–86; PULSE 69–78; RESP 16–20; TEMP 95.4–98; O2SAT 95–98
[2016-09-18] MEDS: CHLORHEXIDINE GLUCONATE 2 % 1 PACK (2 CLOTHS) TOP SCH ×2 (01:17→22:10)
[2016-09-18 02:07] LABS: BLOOD, URINE NEG (NEG); COMMENT (UR) CULT NOT INDICATED; CULTURE IF INDICATED CULT NOT INDICATED; GLUCOSE,URINE 70 mg/dL (NEG); KETONE, URINE NEG (NEG); MUCUS URINE FEW /lpf (OCC); NITRITE,URINE NEG (NEG); PH, URINE 8.5 (5.0-8.5); URINE COLOR LIGHT-YELLOW (YELLW/STRAW)
[2016-09-18] MEDS: HEPARIN SODIUM - SQ 10,000 UNITS/ML VIAL SQ SCH ×3 (05:39→22:10)
[2016-09-18] MEDS: SODIUM CHLOR 0.9% 1000 ML INJ 1,000 ML IV SCH ×2 (05:46→18:41)
[2016-09-18] MEDS: INSULIN ASPART SUPPLEMENTAL SCALE SQ SCH ×4 (06:07→22:13)
[2016-09-18 06:18] LABS: BICARBONATE 20.5 MEQ/L (21.0-32.0); POTASSIUM 5.5 MEQ/L (3.5-5.1)
[2016-09-18 06:55] LABS: CALCIUM-PROTEIN CORRECTED 7.5 MG/DL (8.5-10.1)
[2016-09-18] MEDS: SODIUM CHLORIDE 0.9% FLUSH 10 ML FLUSH SCH ×2 (09:00→21:00)
[2016-09-18] MEDS: FENOFIBRATE 145 MG TAB PO SCH (09:58)
[2016-09-18] MEDS: NIACIN 500 MG EXTENDED RELEASE TAB PO SCH ×2 (09:58→22:09)
[2016-09-18] MEDS: FAMOTIDINE 20 MG/2 ML VIAL IV PUSH SCH (09:58)
[2016-09-18] MEDS: ASPIRIN 81 MG CHEW TAB CHEW SCH (09:58)
[2016-09-18] MEDS ORDERED: SODIUM POLYSTYRENE SULFONATE SUSP 15 GM/60 ML CUP RECTAL ONE (11:45)
--- NOTE | 2016-09-18 11:50 | HHI.PR ---
Subjective Remarks Follow-up acute renal failure/rhabdomyolysis 09/16/16-patient seen and examined, he has increased urine output and no other issues. Denies any chest pain or shortness of breath 09/17/16-patient seen and examined, denies any shortness of breath. Good urine output. Renal indices improving. 09/18/16-patient seen and examined, he was up and ambulated. Good urine output and again renal indices improving with creatinine down to 2.76 Objective Vitals Vital Signs Date Time Temp Pulse Resp B/P Pulse Ox O2 Delivery O2 Flow Rate FiO2 09/18/16 08:00 95.4 69 20 155/86 98 09/18/16 01:30 77 141/73 95 09/18/16 00:00 98.0 78 16 175/84 95 09/17/16 20:31 98.7 80 16 168/81 97 09/17/16 16:00 97.9 71 20 127/80 96 09/17/16 12:00 97.2 69 16 144/77 97 I/O 09/17/16 09/17/16 09/17/16 09/18/16 09/18/16 09/18/16 07:00 15:00 23:00 07:00 15:00 23:00 Intake Total 1002 ml 3966 ml 682 ml 1362 ml Output Total 1300 ml 2650 ml 700 ml 1100 ml Balance -298 ml 1316 ml -18 ml 262 ml Intake Oral 2980 ml IV Total 1002 ml 986 ml 682 ml 1362 ml Output Urine Total 1300 ml 2650 ml 700 ml 1100 ml # Bowel Movements 1 Result Diagram: 09/16/16 0348 09/18/16 0538 Objective Remarks GENERAL: NAD SKIN: Warm and dry. HEAD: Normocephalic. EYES: No scleral icterus. No injection or drainage. NECK: Supple, trachea midline. No JVD or lymphadenopathy. CARDIOVASCULAR: Regular rate and rhythm without murmurs, gallops, or rubs. RESPIRATORY: Breath sounds equal bilaterally. No accessory muscle use. GASTROINTESTINAL: Abdomen soft, non-tender, nondistended. MUSCULOSKELETAL: No cyanosis, or edema. BACK: Nontender without obvious deformity. No CVA tenderness. Procedures None A/P Problem List: (1) Acute renal failure ICD Code: N17.9 Status: Acute (2) Rhabdomyolysis ICD Code: M62.82 Status: Acute (3) Dehydration ICD Code: E86.0 Status: Acute (4) Hyperkalemia ICD Code: E87.5 Status: Acute (5) Insulin dependent diabetes mellitus ICD Code: E11.9 Status: Acute Assessment and Plan 61-year-old man with Acute kidney injury -Renal indices improving as creatinine down to 2.76 -Continue with aggressive IV fluid hydration -Avoid all nephrotoxic drugs and monitor BUN and creatinine -Appreciate input from nephrology and no indication for emergency HD Rhabdomyolysis - Due to dehydration - Continue with NS - Monitor series of CPKs Hypertension - Hold LORETTA inhibitor and diuretics - Continue Norvasc - Hydralazine when necessary Diabetes - Hold metformin due to acute kidney injury -Continue with Insulin sliding scale - Currently on Long acting insulin Hyperkalemia Give Kayexalate 1 now and monitor K DVT GI prophylaxis - Subcutaneous heparin Pepcid - Teds and SCDs Harjit Frederick MD Sep 18, 2016 11:50
[2016-09-18] MEDS ORDERED: SODIUM POLYSTYRENE SULFONATE SUSP 15 GM/60 ML CUP PO ONE (12:45)
--- NOTE | 2016-09-18 18:12 | HHI.NPPN ---
Subjective History of Present Illness 61-year-old male with past medical history of diabetes mellitus which is longstanding more than 25 years, history of hypertension, hyperlipidemia, came to the hospital with complaint of nausea, vomiting, diarrhea, generalized weakness. I was called to see the patient because of very high BUN and creatinine. The patient has creatinine of 11.4 on admission with the BUN of 98 and potassium of 6.8. Additional Remarks Patient is alert, no SOB, eating well. Review of Systems General Constitutional: Fatigue Respiratory Lungs: SOB Cardiovascular Cardiac: SALAZAR Objective Data Data 09/17/16 09/18/16 19:00 07:00 Intake Total 3966 ml 2044 ml Output Total 2650 ml 1800 ml Balance 1316 ml 244 ml Intake Oral 2980 ml IV Total 986 ml 2044 ml Output Urine Total 2650 ml 1800 ml # Bowel Movements 1 Vital Signs Date Time Temp Pulse Resp B/P Pulse Ox O2 Delivery O2 Flow Rate FiO2 09/18/16 16:00 96.3 69 17 178/82 98 09/18/16 12:00 96.1 71 16 158/80 98 09/18/16 08:00 95.4 69 20 155/86 98 09/18/16 01:30 77 141/73 95 09/18/16 00:00 98.0 78 16 175/84 95 09/17/16 20:31 98.7 80 16 168/81 97 -: 09/16/16 0348 09/18/16 0538 Physical Exam General Appearance: No Acute Distress, Comfortable Eyes Eye Exam: Pupils Equal Throat Throat Exam: Oral Mucosa [place] & Moist Neck Neck Exam: Neck Supple Pulmonary Resp Exam: Clear Bilaterally, Breath Sounds Equal, Rhonchi, Decreased Bases Cardiology CV Exam: Regular, Normal Sinus Rhythm Gastrointestinal/Abdomen GI Exam: Soft, Non-Tender, Bowel Sounds Present, Non-Distended Extremeties Extremities Exam: No Edema Neurologic Neuro Exam: Alert, Awake, Oriented Psychiatric Psych Exam: Appropriate Responses Assessment/Plan Assessment Summary: [place]/Acute Renal Failure Electrolyte Assessment: Hyperkalemia, Metabolic Acidosis Problem List: (1) Dehydration (2) Hyperkalemia (3) Rhabdomyolysis (4) Insulin dependent diabetes mellitus (5) Acute renal failure Plan Patient has been non oliguric, Urine out put is good. Creatinine continue to improve. K is normal now. CPK almost same today. Patient has Creatinine of 1.1-1.2 in 2015. cr declined improved with hydration k 5.5 Kayexalate ordered Shane Carvalho MD Sep 18, 2016 18:12
[2016-09-18] MEDS: ATORVASTATIN 80 MG TAB PO SCH (22:09)
[2016-09-18] MEDS ORDERED: cloNIDine HCL 0.1 MG TAB PO ONE (23:30)
[2016-09-19] VITALS: BP 182/86; PULSE 74; RESP 20; TEMP 97.7; O2SAT 97
[2016-09-19 04:00] VITALS: BP 132/69; PULSE 71; RESP 20; TEMP 97.7; O2SAT 97
[2016-09-19 05:20] LABS: BICARBONATE 17.4 MEQ/L (21.0-32.0); POTASSIUM 5.3 MEQ/L (3.5-5.1)
[2016-09-19 05:43] LABS: CKMB 3.8 NG/ML (0.5-3.6)
[2016-09-19] MEDS: SODIUM CHLOR 0.9% 1000 ML INJ 1,000 ML IV SCH (05:49)
[2016-09-19] MEDS: HEPARIN SODIUM - SQ 10,000 UNITS/ML VIAL SQ SCH ×2 (05:49→12:03)
[2016-09-19] MEDS: INSULIN ASPART SUPPLEMENTAL SCALE SQ SCH ×2 (05:51→12:05)
[2016-09-19 08:00] VITALS: BP 152/80; PULSE 65; RESP 16; TEMP 96.4; O2SAT 98
[2016-09-19] MEDS: SODIUM CHLORIDE 0.9% FLUSH 10 ML FLUSH SCH (08:54)
[2016-09-19] MEDS: NIACIN 500 MG EXTENDED RELEASE TAB PO SCH (08:54)
[2016-09-19] MEDS: FENOFIBRATE 145 MG TAB PO SCH (08:54)
[2016-09-19] MEDS: ASPIRIN 81 MG CHEW TAB CHEW SCH (08:54)
[2016-09-19] MEDS: FAMOTIDINE 20 MG/2 ML VIAL IV PUSH SCH (08:54)
[2016-09-19 12:00] VITALS: BP_SYST 146; BP_SYST 174; BP_DIAS 83; BP_DIAS 84; PULSE 62; RESP 16; TEMP 95.8; O2SAT 97
[2016-09-19] MEDS ORDERED: METO-309 PO (12:23)
--- NOTE | 2016-09-19 12:26 | HHI.PR ---
Subjective Remarks Follow-up acute renal failure/rhabdomyolysis 09/16/16-patient seen and examined, he has increased urine output and no other issues. Denies any chest pain or shortness of breath 09/17/16-patient seen and examined, denies any shortness of breath. Good urine output. Renal indices improving. 09/18/16-patient seen and examined, he was up and ambulated. Good urine output and again renal indices improving with creatinine down to 2.76 09/19/16-patient seen and examined; creatinine down to 2.12, no acute event overnight. BP slightly up Objective Vitals Vital Signs Date Time Temp Pulse Resp B/P Pulse Ox O2 Delivery O2 Flow Rate FiO2 09/19/16 08:00 96.4 65 16 152/80 98 09/19/16 04:00 97.7 71 20 132/69 97 09/19/16 00:00 97.7 74 20 182/86 97 09/18/16 22:16 70 172/84 09/18/16 20:00 97.7 71 20 171/84 96 09/18/16 16:00 96.3 69 17 178/82 98 I/O 09/18/16 09/18/16 09/18/16 09/19/16 09/19/16 09/19/16 06:59 14:59 22:59 06:59 14:59 22:59 Intake Total 1362 ml 3157 ml 1320 ml 1307 ml Output Total 1100 ml 2150 ml 2700 ml Balance 262 ml 1007 ml -1380 ml 1307 ml Intake Oral 2480 ml 1320 ml IV Total 1362 ml 677 ml 1307 ml Output Urine Total 1100 ml 2150 ml 2700 ml # Bowel Movements 3 Result Diagram: 09/16/16 0348 09/19/16 0340 Objective Remarks GENERAL: NAD SKIN: Warm and dry. HEAD: Normocephalic. EYES: No scleral icterus. No injection or drainage. NECK: Supple, trachea midline. No JVD or lymphadenopathy. CARDIOVASCULAR: Regular rate and rhythm without murmurs, gallops, or rubs. RESPIRATORY: Breath sounds equal bilaterally. No accessory muscle use. GASTROINTESTINAL: Abdomen soft, non-tender, nondistended. MUSCULOSKELETAL: No cyanosis, or edema. BACK: Nontender without obvious deformity. No CVA tenderness. Procedures None A/P Problem List: (1) Acute renal failure ICD Code: N17.9 Status: Acute (2) Rhabdomyolysis ICD Code: M62.82 Status: Acute (3) Dehydration ICD Code: E86.0 Status: Acute (4) Hyperkalemia ICD Code: E87.5 Status: Acute (5) Insulin dependent diabetes mellitus ICD Code: E11.9 Status: Acute Assessment and Plan 61-year-old man with Acute kidney injury -Renal indices improving as creatinine down to 2.12 -Continue with aggressive IV fluid hydration -Avoid all nephrotoxic drugs and monitor BUN and creatinine -Appreciate input from nephrology and no indication for emergency HD Rhabdomyolysis - Due to dehydration - Continue with NS - Monitor series of CPKs Hypertension - Hold LORETTA inhibitor and diuretics - Start Lopressor 50 mg twice a day - Hydralazine when necessary Diabetes - Hold metformin due to acute kidney injury -Continue with Insulin sliding scale - Currently on Long acting insulin Hyperkalemia Status post Kayexalate 1 09/18/16 DVT GI prophylaxis - Subcutaneous heparin Pepcid - Teds and SCDs Harjit Frederick MD Sep 19, 2016 12:25
--- NOTE | 2016-09-19 12:28 | HHI.DS ---
Discharge Summary Admission Date Sep 14, 2016 at 20:30 Discharge Date: Sep 19, 2016 Admitting Diagnosis (1) Acute renal failure ICD Code: N17.9 (2) Rhabdomyolysis ICD Code: M62.82 (3) Dehydration ICD Code: E86.0 (4) Hyperkalemia ICD Code: E87.5 (5) Insulin dependent diabetes mellitus ICD Code: E11.9 Procedures None Brief History - From Admission 61-year-old man with 3 day history of intermittent vomiting and diarrhea. He has spent the past weekend 2-3 days ago renovating a rental house with significant physical exertion and extended chlorine bleach exposure, with some concern about chlorine poisoning, but without major breathlessness. He has had some pain along his right arm for the past day, which started after his physical activities, and he also has a new cough with mild whitish sputum production and some shortness of breath. Patient is a type 2 insulin-dependent diabetic, and he takes insulin as well as metformin. He has no known history of kidney disease. CBC/BMP: 09/16/16 0348 09/19/16 0340 Significant Findings Laboratory Tests Test 09/17/16 09/17/16 09/18/16 09/19/16 04:48 23:30 05:38 03:40 Potassium Level 5.4 MEQ/L 5.5 MEQ/L 5.3 MEQ/L (3.5-5.1) (3.5-5.1) (3.5-5.1) Blood Urea Nitrogen 43 MG/DL (7-18) 30 MG/DL (7-18) 26 MG/DL (7-18) Creatinine 4.16 MG/DL 2.76 MG/DL 2.12 MG/DL (0.60-1.30) (0.60-1.30) (0.60-1.30) Estimat Glomerular Filtration 15 ML/MIN (>89) 24 ML/MIN (>89) 32 ML/MIN (>89) Rate Random Glucose 180 MG/DL 132 MG/DL 156 MG/DL (74-106) (74-106) (74-106) Calcium Level 8.0 MG/DL 7.4 MG/DL 7.5 MG/DL (8.5-10.1) (8.5-10.1) (8.5-10.1) Total Creatine Kinase 566 U/L 636 U/L 564 U/L (39-308) (39-308) (39-308) Urine Protein 30 mg/dL (NEG-TRACE) Urine Glucose (UA) 70 mg/dL (NEG) Urine Mucus FEW /lpf (OCC) Chloride Level 110 MEQ/L 112 MEQ/L (98-107) (98-107) Carbon Dioxide Level 20.5 MEQ/L 17.4 MEQ/L (21.0-32.0) (21.0-32.0) Protein Corrected Calcium 7.5 MG/DL (8.5-10.1) Creatine Kinase MB 4.0 NG/ML 3.8 NG/ML (0.5-3.6) (0.5-3.6) PE at Discharge GENERAL: NAD SKIN: Warm and dry. HEAD: Normocephalic. EYES: No scleral icterus. No injection or drainage. NECK: Supple, trachea midline. No JVD or lymphadenopathy. CARDIOVASCULAR: Regular rate and rhythm without murmurs, gallops, or rubs. RESPIRATORY: Breath sounds equal bilaterally. No accessory muscle use. GASTROINTESTINAL: Abdomen soft, non-tender, nondistended. MUSCULOSKELETAL: No cyanosis, or edema. BACK: Nontender without obvious deformity. No CVA tenderness. Transfer Summary 61-year-old man with 3 day history of intermittent vomiting and diarrhea. He has spent the past weekend 2-3 days ago renovating a rental house with significant physical exertion and extended chlorine bleach exposure, with some concern about chlorine poisoning, but without major breathlessness. He has had some pain along his right arm for the past day, which started after his physical activities, and he also has a new cough with mild whitish sputum production and some shortness of breath. Patient is a type 2 insulin-dependent diabetic, and he takes insulin as well as metformin. He has no known history of kidney disease. SUBJ 09/15: Clinically improving. Urine output more than 2.2 L in the last 8 hours. Creatinine improved from 10.5-9.5 potassium was 6.7 yesterday today morning 5.4. Hospital Course Patient admitted secondary to acute renal failure due to rhabdomyolysis and dehydration for which she was treated with aggressive IV fluid hydration with consultation to nephrology. Renal indices as well as CK improved with IV fluid hydration. DVT and GI prophylaxis were provided. Her to discharge, patient condition improved and vital remained stable. He will be discharged home on Lopressor 50 mg by mouth every 12 hours with a repeat BMP. Continue to hold lisinopril Pt Condition on Discharge: Stable Discharge Disposition: Discharge Home Discharge Time: <= 30 minutes Discharge Instructions DIET: Follow Instructions for: Diabetic Diet Activities you can perform: Regular-No Restrictions Follow up Referrals: Nephrology PCP Follow-up - 1 Week New Orders: BASIC METABOLIC PROF - 3-5 Days New Medications: Metoprolol Tartrate (Lopressor) 50 Mg Tab 50 MG PO BID Blood Pressure Management #60 Ref 3 TAB Continued Medications: Aspirin (Aspirin) 81 Mg Chew 162 MG CHEW DAILY Ref 0 TAB Atorvastatin (Atorvastatin) 80 Mg Tab 80 MG PO HS Cholesterol Management #30 Ref 0 TAB Fenofibrate (Fenofibrate) 160 Mg Tab 160 MG PO DAILY #30 Ref 0 TAB Glyburide-Metformin (Glucovance) 5-500 Mg Tab 1 TAB PO BID Blood Sugar Management #60 Ref 0 TAB Insulin Aspart Inj (Novolog Flexpen Inj) 300 Unit/3 Ml Pen 1 UNITS SQ Blood Sugar Management #1 Ref 0 PEN Insulin Detemir Inj (Levemir Flextouch Pen Inj) 300 unit/3 ML Pen 1 UNITS SQ Blood Sugar Management Ref 0 PEN Niacin ER (Niaspan) 1,000 Mg Tab 1000 MG PO BID Cholesterol Management #30 Ref 0 TAB Zyozw-[id number] Ethyl Esters (Lovaza) 1 Gm Cap 4 GM PO DAILY Manage Triglycerides #120 Ref 0 CAP Tadalafil (Cialis) 20 Mg Tab 20 MG PO DAILY Do not exceed 1 dose/day. PRN Erectile Dysfunction Ref 0 TAB Harjit Frederick MD Sep 19, 2016 12:28
[2016-09-19] MEDS ORDERED: METOPROLOL TARTRATE 50 MG TAB PO ONE (12:30)
[2016-09-21 19:51] LABS: MYELOPEROXIDASE LESS THAN 1.0 AI (<1.0); PROTEINASE-3 LESS THAN 1.0 AI (<1.0)
== END 2016-09-19 13:30 | disposition home or self-care (01) | DRG 683 ==
LOC: NEDDLT 20:20 → N03A 20:30 → N07B 09-16 12:58
PROVIDERS: ADMIT Anesthesiology; ATTEND Hospitalist
DX: N17.9 Acute kidney failure, unspecified (principal); M62.82 Rhabdomyolysis; E87.2 Acidosis; I10 Essential (primary) hypertension; E11.9 Type 2 diabetes mellitus without complications; D64.9 Anemia, unspecified; E87.5 Hyperkalemia; E86.0 Dehydration; E78.5 Hyperlipidemia, unspecified; Z87.891 Personal history of nicotine dependence; Z79.4 Long term (current) use of insulin
CPT/HCPCS: 36600; 80048; 80053; 81001; 82550; 82552; 82805; 82948; 83735; 84100; 84155; 85025; 86021; 86038; 86160; 87641; 94664; J0360; J0610; J1644; J1815; J2405; J7030; J7070